=== PATIENT | female | born 1940 | race Caucasian/White ===

== ENCOUNTER 2022-11-09 10:15 | Emergency (ER) | payer OTHER, MEDICARE ==
[~2022-11-09] VITALS: Ht 165.1 cm; Wt 57.0 kg
[~2022-11-09 10:15] MED LIST: ENABLEX7.5 MG OR; LISINOPRIL5 MG PO; METFORMIN500 M1 PO; OS CAL PO; PREVASTATIN PO; VITAMIN D2000 UNIT PO; [UNRECOGNIZED DRUG - OTHER] PO
[2022-11-09 10:28] VITALS: BP 153/116
[2022-11-09 10:30] VITALS: BP 159/84
[2022-11-09 10:38] VITALS: BP 158/55
[2022-11-09 11:06] LABS: BASO% 0.2 % (0-3); EOS% 0.7 % (0-8); HEMATOCRIT 38.9 % (37.0-47.0); HEMOGLOBIN 12.5 g/dl (12.0-16.0); IMMATURE GRANULOCYTES 0.7 % (0.0-5.0); LYMPH% 28.9 % (15-41); MEAN CELL VOLUME 98.2 fL CALC (80.0-100.0); MEAN CORPUSCULAR HGB 31.6 pG CALC (26.0-32.0); MEAN CORPUSCULAR HGB CONC 32.1 g/dL CAL (32.0-36.0); MONO% 7.5 % (2-13); NEUT# 5.59 thou/uL (2.00-7.15); RED BLOOD COUNT 3.96 mill/uL (4.20-5.60); RED CELL DISTRI WIDTH 12.8 % (11.5-15.5)
[2022-11-09 11:16] LABS: ALBUMIN 4.3 g/dL (3.2-5.0); ALKALINE PHOSPHATASE 114 u/l (38-126); ANION GAP 14 (6-22 (CALC)); BILIRUBIN, TOTAL 0.3 mg/dL (0.02-1.3); BUN 27 mg/dL (8-23); BUN/CREATININE RATIO 29 (12-20 (CALC)); CARBON DIOXIDE 25 mmol/l (22-30); CHLORIDE 108 mmol/l (95-108); CREATININE 0.9 mg/dL (0.5-1.0); GFR FOR AFR.AMER. > 60 ML/MIN (>=60 (CALC)); GFR OTHER RACES 60 ML/MIN (>=60 (CALC)); POTASSIUM 4.2 mmol/l (3.5-5.1); SGOT/AST 33 u/l (9-36); SODIUM 142 mmol/l (137-146); TOTAL PROTEIN 7.3 g/dL (6.3-8.2)
[2022-11-09 11:29] VITALS: BP 145/58
[2022-11-09 11:44] VITALS: BP 145/58
== END 2022-11-09 11:55 | disposition home or self-care (01) | DRG 90 ==
LOC: ED 10:15
PROVIDERS: Family Medicine
DX: S06.0X0A Concussion without loss of consciousness, initial encounter (principal); M54.2 Cervicalgia; V49.40XA Driver injured in collision with unspecified motor vehicles in traffic accident, initial encounter

== ENCOUNTER 2023-07-09 01:30 | Emergency (ER) | payer MEDICARE ==
[~2023-07-09] VITALS: Ht 165.1 cm; Wt 56.7 kg
[~2023-07-09 01:30] MED LIST changes: +DONEPEZIL HYDRO10 MG PO; +MEDDOSEPAK PO; +METHOCARBAMOL500 MG PO; +TOPROL XL25 M1 PO; +XARELTO15 MG PO
[2023-07-09] MEDS ORDERED: CELEBREX200 M1 PO (03:48)
[2023-07-09] MEDS ORDERED: TRAMADOL HCL50 MG PO (03:48)
[2023-07-09 04:01] VITALS: BP 157/79
== END 2023-07-09 04:30 | disposition home or self-care (01) ==
LOC: ED 01:30
DX: S39.012A Strain of muscle, fascia and tendon of lower back, initial encounter (principal); F03.90 Unspecified dementia, unspecified severity, without behavioral disturbance, psychotic disturbance, mood disturbance, and anxiety; I48.91 Unspecified atrial fibrillation; X58.XXXA Exposure to other specified factors, initial encounter